=== PATIENT | male | born 1945 | race Caucasian/White ===

== ENCOUNTER 2024-11-06 16:30 | Emergency (ER) | payer BC, MEDICARE, SELFPAY ==
[2024-11-06 16:36] VITALS: BP 174/78; PULSE 72; RESP 18; TEMP 36.8; O2SAT 97; BMI 27.2
--- NOTE | 2024-11-06 16:48 | PD.EDSKIN ---
ED Skin Abcess FB-RME/HPI General Chief complaint: General Adult/Misc Complain Stated complaint: REDNESS AND SWELLING TO NOSE Time Seen by Provider: 11/06/24 16:32 Arrival date/time: 11/06/24 16:30 RME / HPI RME / HPI narrative: 79-year-old patient presents emergency department with complaint of a have a sore to my nose for the past 2 days. Patient denies fever denies change in smell denies muffled voice denies ear pain denies any elevating factors pain is worse with palpation of the tip of his nose. Patient denies any previous history of skin cancer. He attests to history of diabetes and dyslipidemia. Related Data Home Medications ?Medication ?Instructions ?Recorded ?Confirmed simvastatin 20 mg tablet 20 mg PO QPM 07/06/20 07/06/20 Previous Rx's ?Medication ?Instructions ?Recorded acetaminophen 325 mg tablet (Mapap 650 mg (2 x 325 mg) PO Q4HR PRN 07/30/20 (acetaminophen)) Mild Pain or T > 101F #30 tabs albuterol sulfate 90 mcg/actuation 2 puff INH Q6HRRT PRN shortness of 07/30/20 aerosol inhaler (Ventolin HFA) breath or wheezing #6.7 grams amoxicillin 500 mg-potassium 1 tab PO BID #10 tabs 07/30/20 clavulanate 125 mg tablet (Augmentin) aspirin 81 mg tablet,delayed 81 mg PO QDAY #30 tabs 07/30/20 release insulin regular human 100 unit/mL See Rx Instructions .Route 07/30/20 injection solution (Novolin R .COMPLEX #10 mL Regular U-100 Insulin) lactulose 20 gram/30 mL oral 10 g (15 mL) PO QDAY PRN 07/30/20 solution constipation #1,200 mL potassium bicarbonate-citric acid 20 meq (2 x 10 mEq) PO QDAY #30 ea 07/30/20 10 mEq effervescent tablet (Effer-K) simvastatin 20 mg tablet 20 mg PO QPM #30 tabs 07/30/20 sulfamethoxazole 800 1 tab PO Q12H 10 days #20 tabs 11/06/24 mg-trimethoprim 160 mg tablet (Bactrim DS) Allergies Allergy/AdvReac Type Severity Reaction Status Date / Time Penicillins Allergy Mild Rash Verified 11/06/24 16:35 Review of Systems Review of Systems Systems Reviewed: All systems reviewed, normal except as documented Constitutional Constitutional: Reports system reviewed and no additional complaints, except as documented and Denies headache(s) ENT Ears, Nose, Mouth, and Throat: Denies epistaxis, Denies facial pain, Denies halitosis and Denies headache(s) Cardiovascular Cardiovascular: Reports system reviewed and no additional complaints, except as documented Respiratory Respiratory: Reports system reviewed and no additional complaints, except as documented Musculoskeletal Musculoskeletal: Reports system reviewed and no additional complaints, except as documented Neurologic Neurologic: Denies headache(s) ED Exam General General appearance: Present alert, in no apparent distress and appears intoxicated Head Head exam: Present atraumatic and normocephalic Expanded ENT Exam Nose exam: Present other (redness to nasal tip); Absent sinus tenderness, nasal deviation, crepitus, septal hematoma or laceration Nose/Mouth:  1. erythema+ tenderness Neck Neck exam: Present normal inspection Chest Chest inspection: Present normal inspection Respiratory Respiratory exam: Present normal lung sounds bilaterally Cardiovascular Cardiovascular exam: Present regular rate Extremities Exam Extremities exam: Present normal inspection Neurological Exam Neurological exam: Present alert and oriented X3 Course Quality Measures none Orders Category Date Time Status Clindamycin Vial [Cleocin vial] Med 11/06/24 16:47 Discontinued 600 mg IM X1 ONE Vital Signs Vital signs: Vital Signs Temperature 98.2 F 11/06/24 16:36 Pulse Rate 72 11/06/24 16:36 Respiratory Rate 18 11/06/24 16:36 Blood Pressure 174/78 H 11/06/24 16:36 Pulse Oximetry (%) 97 11/06/24 16:36 Oxygen Delivery Method Room Air 11/06/24 16:36 Skin / Abscess / Foreign Body MDM Narrative MDM Narrative:: 79-year-old patient presents to the emergency department with complaint of sore to the tip of his nose on physical exam there is some redness to the tip of the nose there is no signs of any abscess or erythema to internal bilateral nostrils. No lesions noted to the tip of nose doubt possibility of skin cancer at this time patient will be DC'd home with oral antibiotics with instructions to follow-up with PCP patient's symptoms likely due to his history of diabetes. Patient is in agreement with plan and is stable to DC home Patient data External records reviewed:: None Clinical information provided by:: patient Social determinants that could affect healthcare access:: none Patient has the following chronic illnesses:: DM How is presenting disease/condition affected by chronic disease/condition?: exacerbated by Evaluation data The following diagnostics were reviewed and interpreted by me:: other (specify) (n/a) Lab and/or radiology exams considered but not ordered:: na Interpretation Summary: na Medications / Prescriptions Medications or Prescriptions considered but not ordered:: both considered and ordered Medication administrations:: Medication Administration History Discontinued Medications Clindamycin Phosphate (Clindamycin Phos Inj 150 Mg/Ml Vial 6 Ml) 600 mg IM X1 ONE Stop: 11/06/24 16:48 given in ED Consultations Consultation(s) initiated? (list below): No Diagnosis Skin/Abscess Differential Diagnosis: abscess of skin or subcutaneous tissue, herpes zoster, cellulitis and impetigo Most likely diagnosis given after review of the tests above:: abscess/ cellulitis Admission Indicated Admission indicated?: not indicated Admission Request Was there a request for admission?: No Disposition Plan Disposition Plan: Discharge Discharge Attestation Discharge Attestation: The patient and all family members were given an opportunity to ask questions and understood the discharge instructions. Discharge instructions specifically effects, indications for sooner follow up or return to the emergency department, and the expected course of current diagnosis. Patient condition: Stable Discharge Plan Plan Patient Disposition: HOME (Self Care) Prescriptions/Referrals Prescriptions/Med Rec: New sulfamethoxazole-trimethoprim [Bactrim DS] 800-160 mg tablet 1 tab PO Q12H 10 Days Qty: 20 0RF No Action simvastatin 20 mg Tablet 20 mg PO QPM acetaminophen [Mapap (acetaminophen)] 325 mg Tablet 650 mg PO Q4HR PRN (Reason: Mild Pain or T > 101F) Qty: 30 0RF albuterol sulfate [Ventolin HFA] 90 mcg/actuation Hfa Aerosol Inhaler 2 puff INH Q6HRRT PRN (Reason: shortness of breath or wheezing) Qty: 6.7 0RF aspirin 81 mg tablet,delayed release (DR/EC) 81 mg PO QDAY Qty: 30 0RF Novolin R Regular U100 Insulin 100 unit/mL Solution See Rx Instructions .ROUTE .COMPLEX Qty: 10 0RF Rx Instructions: Please administer per light sliding scale TID AC and HS. lactulose 20 gram/30 mL Solution 10 g PO QDAY PRN (Reason: constipation) Qty: 1200 0RF Effer-K 10 mEq Tablet, Effervescent 20 meq PO QDAY Qty: 30 0RF amoxicillin-pot clavulanate [Augmentin] 500-125 mg tablet 1 tab PO BID Qty: 10 0RF simvastatin 20 mg tablet 20 mg PO QPM Qty: 30 0RF Problem List Clinical Impression: Abscess or cellulitis of nose, external Patient/Caregiver Discharge Instructions Education Materials: ED Abscess Antibiotic ... Print Language: Slovenian Stand Alone Forms: Joanie Award Info., Patient Portal Info Letter
[2024-11-06] MEDS: CLINDAMYCIN PHOS INJ 150 MG/ML VIAL 6 ML 600 MG IM (16:55)
== END 2024-11-06 17:07 | disposition home or self-care (01) ==
PROVIDERS: Emergency Provider Emergency Medicine; PCP Internal Medicine
DX: J34.0 Abscess, furuncle and carbuncle of nose (principal); E11.9 Type 2 diabetes mellitus without complications; E78.5 Hyperlipidemia, unspecified
CPT/HCPCS: 96372; 99283; J0736